=== PATIENT | female | born 1985 | race Two or more races ===

== ENCOUNTER 2021-08-08 13:00 | Inpatient (IN) | payer OTHER ==
[~2021-08-08] VITALS: Ht 154.9 cm; Wt 72.6 kg
[~2021-08-08 13:00] MED LIST: PEPCID40 MG PO; PRENATAL CAPLE1 EACH PO; PRENATAL TABLE1 EAC1; PROTONIX40 MG PO; RELAGESIC TABLE1 TAB PO; TYLENOL EXTRA500 MG PO; ZOFRAN8 MG PO
== END 2021-08-09 16:36 | disposition home or self-care (01) | DRG 745 ==
LOC: CIR.AMB 13:00 → OB/GYN 21:38
PROVIDERS: ADMIT Obstetrics & Gynecology Obstetrics; ATTEND Obstetrics & Gynecology Obstetrics
PROC: 0UPD8HZ Removal of Contraceptive Device from Uterus and Cervix, Via Natural or Artificial Opening Endoscopic (ICD-10-PCS; 2021-08-08)
PROC: 0UDB8ZX Extraction of Endometrium, Via Natural or Artificial Opening Endoscopic, Diagnostic (ICD-10-PCS; principal; 2021-08-08 15:15)
DX: N93.8 Other specified abnormal uterine and vaginal bleeding (principal); Z20.822 Contact with and (suspected) exposure to COVID-19; Z30.432 Encounter for removal of intrauterine contraceptive device